=== PATIENT | female | born 1990 | race Two or more races ===

== ENCOUNTER 2021-01-23 11:32 | Emergency (ER) | payer SELFPAY ==
[~2021-01-23] VITALS: Ht 147.3 cm; Wt 75.9 kg
[2021-01-23 12:37] LABS: BASO % 0 % (0-3); EOS # 0.1 x10^3/uL (0.0-0.7); EOS % 1 % (0-3); HEMATOCRIT 38.3 % (36.0-47.0); HEMOGLOBIN 13.5 g/dL (12.0-15.5); LYMPH # 1.7 x10^3/uL (1.0-4.8); LYMPH % 18 % (24-48); MEAN CORPUSCULAR HEMOGLOBIN 30 pg (25-35); MEAN CORPUSCULAR HGB CONC 35 g/dL (31-37); MEAN CORPUSCULAR VOLUME 85 fL (79-100); MONO # 0.4 x10^3/uL (0.0-1.1); MONO % 4 % (0-9); NEUT # 7.8 x10^3/uL (1.8-7.7); NEUT % 78 % (31-73); PLATELET COUNT 273 x10^3/uL (140-400); RED BLOOD COUNT 4.52 x10^6/uL (3.50-5.40); RED CELL DISTRIBUTION WIDTH 13.3 % (11.5-14.5)
[2021-01-23 12:47] LABS: CALCIUM 8.9 mg/dL (8.5-10.1); CREATININE 0.5 mg/dL (0.6-1.0); GFR 146.9; POTASSIUM 3.6 mmol/L (3.5-5.1)
[2021-01-23 12:57] LABS: ALBUMIN 3.2 g/dL (3.4-5.0); ALBUMIN/GLOBULIN RATIO 0.9 (1.0-1.7); TOTAL BILIRUBIN 0.3 mg/dL (0.2-1.0); TOTAL PROTEIN 6.9 g/dL (6.4-8.2)
--- NOTE | 2021-01-23 13:53 | RAD ---
EXAM: OB ULTRASOUND, > 14 WEEKS HISTORY: Seizure. COMPARISON: None. TECHNIQUE: Multiple grayscale images, color Doppler, and M-mode images of the uterus are obtained. FINDINGS: There is a single intrauterine gestation in transverse presentation. The placenta is posterior in loc ation without evidence of placenta previa. The amount of amniotic fluid appears grossly normal. The c ervix is obscured. Biometrical data: BPD = 2.4 cm for 14 weeks 0 days. HC = 9.06 cm for 14 weeks 1 days. AC = 7.57 cm for 14 weeks 0 days. FL = 1.16 cm for 13 weeks 3 days. HC/AC ratio = 1.2. Overall, the estimated sonographic gestational age is 13 weeks and 6 days for an estimated date of de livery of 07/25/2021. The estimated date of delivery provided by the last menstrual period is . A 4 chamber heart is identified with positive cardiac activity. The estimated heart rate is 155 beats per minute. There is body motion. The umbilical cords insertion is unremarkable. The fet al stomach is seen. The remainder the anatomy is not well seen due to early gestational age. Th e maternal adnexal regions are unremarkable. IMPRESSION: 1. Single intrauterine fetus with normal heart rate and gestational age based on ultrasound measureme nts of 13 weeks and 6 days. 2. A formal anatomy survey can be performed at approximately 20 weeks gestation. Electronically signed by: Karoline Piedra MD (01/23/2021 1:51 PM) [id number]
[2021-01-23 13:55] LABS: BARBITURATES NEG (NEG); BENZODIAZEPINES NEG (NEG); CANNABINOIDS NEG (NEG); COCAINE NEG (NEG); METHADONE NEG (NEG); OPIATES NEG (NEG); PHENCYCLIDINE NEG (NEG)
[2021-01-23 13:56] LABS: BILIRUBIN,URINE NEGATIVE (NEG); CLARITY,URINE CLOUDY; COLOR,URINE YELLOW; NITRITE,URINE NEGATIVE (NEG); PROTEIN,URINE 30 mg/dL (NEG-TRACE); UROBILINOGEN,URINE 0.2 mg/dL (0.2 mg/dL)
[2021-01-23 13:57] LABS: AMPHETAMINE/METHAMPHETAMINE NEG (NEG)
--- NOTE | 2021-01-23 14:04 | PHYS DOC ---
Past Medical History Additional Past Medical Histor: PREECLAMPSIA Past Surgical History: Smoking Status: Never Smoker Alcohol Use: None General Adult EDM: Chief Complaint: SEIZURE HPI: HPI: Patient is a 30-year-old female that presents today after having a seizure at [facility] while having blood drawn. Patient is [place]-speaking only so all information was obtained with an health center manager services. Patient states that today she was having blood drawn for visit she had not eaten any breakfast today she had only had fluids she states that while they were drawing blood she blacked out and the history she gave from the staff is that she had a seizure. No one is with her today she was brought to the emergency department by her . Review of Systems: Review of Systems: Constitutional: Denies fever or chills. [] Eyes: Denies change in visual acuity. [] HENT: Denies nasal congestion or sore throat. [] Respiratory: Denies cough or shortness of breath. [] Cardiovascular: Denies chest pain or edema. [] GI: Denies abdominal pain, nausea, vomiting, bloody stools or diarrhea. [] : Denies dysuria. [] Musculoskeletal: Denies back pain or joint pain. [] Integument: Denies rash. [] Neurologic: Denies headache, focal weakness or sensory changes. [] Endocrine: Denies polyuria or polydipsia. [] Lymphatic: Denies swollen glands. [] Psychiatric: Denies depression or anxiety. [] Heart Score: C/O Chest Pain: N/A Risk Factors: Risk Factors: DM, Current or recent (<one month) smoker, HTN, HLP, family his tory of CAD, obesity. Risk Scores: Score 0 - 3: 2.5% MACE over next 6 weeks - Discharge Home Score 4 - 6: 20.3% MACE over next 6 weeks - Admit for Clinical Observation Score 7 - 10: 72.7% MACE over next 6 weeks - Early Invasive Strategies Allergies: Allergies: Allergies Coded Allergies Type Severity Reaction Last Updated Verified No Known Drug Allergies 01/23/21 No Physical Exam: PE: Constitutional: Well developed, well nourished, no acute distress, non-toxic appearance. [] HENT: Normocephalic, atraumatic, bilateral external ears normal, oropharynx moist, no oral exudates, nose normal. [] Eyes: PERRLA, EOMI, conjunctiva normal, no discharge. [] Neck: Normal range of motion, no tenderness, supple, no stridor. [] Cardiovascular:Heart rate regular rhythm, no murmur [] Lungs & Thorax: Bilateral breath sounds clear to auscultation [] Abdomen: Bowel sounds normal, soft, no tenderness, no masses, no pulsatile masses. [] Skin: Warm, dry, no erythema, no rash. [] Back: No tenderness, no CVA tenderness. [] Extremities: No tenderness, no cyanosis, no clubbing, ROM intact, no edema. [] Neurologic: Alert and oriented X 3, normal motor function, normal sensory function, no focal deficits noted. [] Psychologic: Affect normal, judgement normal, mood normal. [] Current Patient Data: Labs: Laboratory Tests Test 01/23/21 12:00 01/23/21 13:41 01/23/21 13:43 White Blood Count 10.0 x10^3/uL Red Blood Count 4.52 x10^6/uL Hemoglobin 13.5 g/dL Hematocrit 38.3 % Mean Corpuscular Volume 85 fL Mean Corpuscular Hemoglobin 30 pg Mean Corpuscular Hemoglobin Concent 35 g/dL Red Cell Distribution Width 13.3 % Platelet Count 273 x10^3/uL Neutrophils (%) (Auto) 78 % Lymphocytes (%) (Auto) 18 % Monocytes (%) (Auto) 4 % Eosinophils (%) (Auto) 1 % Basophils (%) (Auto) 0 % Neutrophils # (Auto) 7.8 x10^3/uL Lymphocytes # (Auto) 1.7 x10^3/uL Monocytes # (Auto) 0.4 x10^3/uL Eosinophils # (Auto) 0.1 x10^3/uL Basophils # (Auto) 0.0 x10^3/uL Sodium Level 139 mmol/L Potassium Level 3.6 mmol/L Chloride Level 104 mmol/L Carbon Dioxide Level 24 mmol/L Anion Gap 11 Blood Urea Nitrogen 7 mg/dL Creatinine 0.5 mg/dL Estimated GFR (Cockcroft-Gault) 146.9 BUN/Creatinine Ratio 14 Glucose Level 75 mg/dL Calcium Level 8.9 mg/dL Total Bilirubin 0.3 mg/dL Aspartate Amino Transf (AST/SGOT) 19 U/L Alanine Aminotransferase (ALT/SGPT) 20 U/L Alkaline Phosphatase 63 U/L Total Protein 6.9 g/dL Albumin 3.2 g/dL Albumin/Globulin Ratio 0.9 Urine Collection Type Unknown Urine Color Yellow Urine Clarity Cloudy Urine pH 7.0 Urine Specific [place] 1.025 Urine Protein 30 mg/dL Urine Glucose (UA) Negative mg/dL Urine Ketones (Stick) >=80 mg/dL Urine Blood Negative Urine Nitrite Negative Urine Bilirubin Negative Urine Urobilinogen Dipstick 0.2 mg/dL Urine Leukocyte Esterase Small Urine RBC 0 /HPF Urine WBC 1-4 /HPF Urine Squamous Epithelial Cells Many /LPF Urine Bacteria Many /HPF Urine Mucus Marked /LPF Urine Opiates Screen Neg Urine Methadone Screen Neg Urine Barbiturates Neg Urine Phencyclidine Screen Neg Urine Amphetamine/Methamphetamine Neg Urine Benzodiazepines Screen Neg Urine Cocaine Screen Neg Urine Cannabinoids Screen Neg Urine Ethyl Alcohol Neg Bedside Urine HCG, Qualitative Hcg positive Laboratory Tests Test 01/23/21 12:00 01/23/21 13:41 01/23/21 13:43 White Blood Count 10.0 x10^3/uL (4.0-11.0) Red Blood Count 4.52 x10^6/uL (3.50-5.40) Hemoglobin 13.5 g/dL (12.0-15.5) Hematocrit 38.3 % (36.0-47.0) Mean Corpuscular Volume 85 fL (79-100) Mean Corpuscular Hemoglobin 30 pg (25-35) Mean Corpuscular Hemoglobin Concent 35 g/dL (31-37) Red Cell Distribution Width 13.3 % (11.5-14.5) Platelet Count 273 x10^3/uL (140-400) Neutrophils (%) (Auto) 78 % (31-73) H Lymphocytes (%) (Auto) 18 % (24-48) L Monocytes (%) (Auto) 4 % (0-9) Eosinophils (%) (Auto) 1 % (0-3) Basophils (%) (Auto) 0 % (0-3) Neutrophils # (Auto) 7.8 x10^3/uL (1.8-7.7) H Lymphocytes # (Auto) 1.7 x10^3/uL (1.0-4.8) Monocytes # (Auto) 0.4 x10^3/uL (0.0-1.1) Eosinophils # (Auto) 0.1 x10^3/uL (0.0-0.7) Basophils # (Auto) 0.0 x10^3/uL (0.0-0.2) Sodium Level 139 mmol/L (136-145) Potassium Level 3.6 mmol/L (3.5-5.1) Chloride Level 104 mmol/L (98-107) Carbon Dioxide Level 24 mmol/L (21-32) Anion Gap 11 (6-14) Blood Urea Nitrogen 7 mg/dL (7-20) Creatinine 0.5 mg/dL (0.6-1.0) L Estimated GFR (Cockcroft-Gault) 146.9 BUN/Creatinine Ratio 14 (6-20) Glucose Level 75 mg/dL (70-99) Calcium Level 8.9 mg/dL (8.5-10.1) Total Bilirubin 0.3 mg/dL (0.2-1.0) Aspartate Amino Transferase (AST) 19 U/L (15-37) Alanine Aminotransferase (ALT) 20 U/L (14-59) Alkaline Phosphatase 63 U/L (46-116) Total Protein 6.9 g/dL (6.4-8.2) Albumin 3.2 g/dL (3.4-5.0) L Albumin/Globulin Ratio 0.9 (1.0-1.7) L Urine Opiates Screen Neg (NEG) Urine Methadone Screen Neg (NEG) Urine Barbiturates Neg (NEG) Urine Phencyclidine Screen Neg (NEG) Urine Amphetamine/Methamphetamine Neg (NEG) Urine Benzodiazepines Screen Neg (NEG) Urine Cocaine Screen Neg (NEG) Urine Cannabinoids Screen Neg (NEG) Urine Ethyl Alcohol Neg (NEG) POC Urine HCG, Qualitative Hcg positive (Negative) Laboratory Tests 01/23/21 12:00 Laboratory Tests 01/23/21 12:00 Vital Signs: Vital Signs Date Time Temp Pulse Resp B/P (MAP) Pulse Ox O2 Delivery O2 Flow Rate FiO2 01/23/21 14:25 73 114/59 (77) 99 Room Air 01/23/21 13:55 71 112/56 (74) 99 Room Air 01/23/21 13:25 71 110/61 (77) 99 Room Air 01/23/21 12:55 75 16 101/59 (73) 99 Room Air 01/23/21 12:25 72 16 110/62 (78) 99 Room Air 01/23/21 12:02 98.2 70 18 117/54 (75) 100 Room Air 98.2 Vital Signs Date Time Temp Pulse Resp B/P (MAP) Pulse Ox O2 Delivery O2 Flow Rate FiO2 01/23/21 12:55 75 16 101/59 (73) 99 Room Air 01/23/21 12:02 98.2 98.2 EKG: EKG: [] Radiology/Procedures: Radiology/Procedures: REASON: confirm IUP, had seizure, no tv needed;NO SYMPTOMS PER PT. PROCEDURE: OB LIMITED EXAM: OB ULTRASOUND, > 14 WEEKS HISTORY: Seizure. COMPARISON: None. TECHNIQUE: Multiple grayscale images, color Doppler, and M-mode images of the uterus are obtained. FINDINGS: There is a single intrauterine gestation in transverse presentation. The placenta is posterior in location without evidence of placenta previa. The amount of amniotic fluid appears grossly normal. The cervix is obscured. Biometrical data: BPD = 2.4 cm for 14 weeks 0 days. HC = 9.06 cm for 14 weeks 1 days. AC = 7.57 cm for 14 weeks 0 days. FL = 1.16 cm for 13 weeks 3 days. HC/AC ratio = 1.2. Overall, the estimated sonographic gestational age is 13 weeks and 6 days for an estimated date of delivery of 07/25/2021. The estimated date of delivery provided by the last menstrual period is 07/25/2021. A 4 chamber heart is identified with positive cardiac activity. The estimated heart rate is 155 beats per minute. There is body motion. The umbilical cords insertion is unremarkable. The stomach is seen. The remainder the anatomy is not well seen due to early gestational age. The maternal adnexal regions are unremarkable. IMPRESSION: 1. Single intrauterine fetus with normal heart rate and gestational age based on ultrasound measurements of 13 weeks and 6 days. 2. A formal anatomy survey can be performed at approximately 20 weeks gestation. Electronically signed by: Karoline Piedra MD (01/23/2021 1:51 PM) [id number] [] Course & Med Decision Making: Course & Med Decision Making Pertinent Labs and Imaging studies reviewed. (See chart for details) 1409 review of labs and radiological exams shows a UTI, will place patient on Macrobid 100 mg twice daily for 7 days, since patient had a new onset seizure spoke with Dr. Ramos neurology he recommended not getting a CT scan at the time due to the early nature of her he recommended follow-up in an outpatient basis for an MRI we will refer patient to neurology, or have patient follow-up with her clinic at [place] and have them order an outpatient MRI of her head for new onset seizures. Patient was instructed not to drive for the next 6 months due to her seizure. all instructions given to patient upon discharge were done using the interpretive services for [place]] [email or web address] Disclaimer: Dragpage Disclaimer: This electronic medical record was generated, in whole or in part, using a voice recognition dictation system. Departure Departure Impression: Primary Impression: New onset seizure Additional Impression: UTI (urinary tract infection) during Qualified Codes: O23.42 - Unspecified infection of urinary tract in , second trimester Disposition: HOME / SELF CARE / HOMELESS Condition: STABLE Referrals: UNKNOWN PCP NAME (PCP) AMINA GREENE MD Patient Instructions: - Urinary Tract Infection, Seizure, Adult Additional Instructions: Since you had a seizure no driving for 6 months Follow-up with neurology Dr. Ramos, or your primary care doctor's office for an outpatient MRI for evaluation for new onset seizures Macrobid twice daily for 7 days for urinary tract infection Return to the emergency department if you experience another seizure Follow-up with your primary care physician next week by phone Scripts Nitrofurantoin Monohyd/M-Cryst (MACROBID 100 MG CAPSULE) 100 Mg Capsule 1 CAP PO BID for 7 Days, #14 CAP 0 Refills Prov: NEGAR CARROLL MOLDING CUTTER 01/23/21 NEGAR CARROLL MOLDING CUTTER Jan 23, 2021 14:04
[2021-01-23 14:06] LABS: BACTERIA,URINE MANY /HPF (0-FEW); RBC,URINE 0 /HPF (0-2)
[2021-01-23] MEDS ORDERED: NITR100C62 PO (14:22)
[2021-01-23 14:25] VITALS: BP 114/59
== END 2021-01-23 14:35 | disposition home or self-care (01) ==
LOC: ER 11:32
DX: O26.891 Other specified pregnancy related conditions, first trimester (principal); R56.9 Unspecified convulsions; O23.41 Unspecified infection of urinary tract in pregnancy, first trimester; N39.0 Urinary tract infection, site not specified; Z3A.13 13 weeks gestation of pregnancy; Z98.890 Other specified postprocedural states
CPT/HCPCS: 36415; 76815; 80053; 80307; 81001; 81025; 85025; 87086; 99285

== ENCOUNTER → 2021-07-18 | Outpatient (CLI) | payer SELFPAY ==
[~2021-07-18] MED LIST: NITR100C62 PO
== END ==
LOC: LAB 12:19
PROVIDERS: ATTEND Obstetrics & Gynecology
DX: Z01.812 Encounter for preprocedural laboratory examination (principal); U07.1 COVID-19
CPT/HCPCS: U0003